=== PATIENT | male | born 1970 | race Caucasian/White ===

== ENCOUNTER 2022-11-21 13:01 | Emergency (ER) | payer BC ==
[2022-11-21 13:37] VITALS: TEMP 98.6; BMI 41.3
[2022-11-21] MEDS ORDERED: LABETALOL HCL 5 MG/1 ML (100MG/20 ML VIAL) IVPUSH ONE ×3 (14:04→16:45)
[2022-11-21 14:08] LABS: HEMATOCRIT 41.4 % (35.4-49); HEMOGLOBIN 14.2 G/dL (11.7-16.9); MCH 29.5 pg (25.7-33.7); MCHC 34.2 g/dl (32.0-35.9); MEAN CELL VOLUME 86.3 fl (80-96); MEAN PLT VOLUME 9.2 fl (7.5-11.1); PLATELET COUNT 233.4 10^3/uL (134-434); RDW 13.9 % (11.9-15.9); WHITE BLOOD COUNT 10.5 10^3/uL (4.0-10.8)
[2022-11-21 14:11] LABS: PLATELET ESTIMATE ADEQUATE
[2022-11-21] MEDS ORDERED: LABETALOL HCL 5 MG/1 ML (100MG/20 ML VIAL) ONE (14:14)
[2022-11-21 14:17] LABS: ALBUMIN 3.9 g/dl (3.4-5.0); BILIRUBIN,TOTAL 0.5 mg/dl (0.2-1); CALCIUM 8.9 mg/dl (8.5-10.1); CREATININE 1.1 mg/dl (0.6-1.3); POTASSIUM 3.7 mmol/L (3.5-5.1); SGOT/AST 61.9 U/L (15-37); SGPT/ALT 110.2 U/L (7-52); TOT PROT 6.4 g/dl (6.4-8.2)
[2022-11-21 17:15] VITALS: BP 165/101; PULSE 61; RESP 18
== END 2022-11-21 18:23 | disposition home or self-care (01) ==
LOC: FER 13:01
PROC: 3E033GC Introduction of Other Therapeutic Substance into Peripheral Vein, Percutaneous Approach (ICD-10-PCS; principal; 2022-11-21)
PROC: 3E033GC Introduction of Other Therapeutic Substance into Peripheral Vein, Percutaneous Approach (ICD-10-PCS; 2022-11-21)
PROC: 3E033GC Introduction of Other Therapeutic Substance into Peripheral Vein, Percutaneous Approach (ICD-10-PCS; 2022-11-21)
DX: R07.9 Chest pain, unspecified (principal); I10 Essential (primary) hypertension
CPT/HCPCS: 36415; 71045-TC-FY; 80053; 84484; 85027; 93005; 99285-25

== ENCOUNTER 2023-04-25 11:25 | Emergency (ER) | payer BC ==
[2023-04-25 11:38] VITALS: BP 142/95; PULSE 75; RESP 18; TEMP 98.1; BMI 42.3
[2023-04-25] MEDS ORDERED: IBUPROFEN 600 MG TABLET (FP) PO ONE ×2 (13:40→13:41)
== END 2023-04-25 14:05 | disposition home or self-care (01) ==
LOC: FER 11:25
DX: S60.211A Contusion of right wrist, initial encounter (principal); R22.31 Localized swelling, mass and lump, right upper limb; M25.531 Pain in right wrist; W10.8XXA Fall (on) (from) other stairs and steps, initial encounter
CPT/HCPCS: 73110-TC-RT-FY; 99283-25